=== PATIENT | female | born 1980 | race Caucasian/White ===

== ENCOUNTER 2020-10-19 17:00 | Outpatient (CLI) | payer BC, SELFPAY | END 2020-10-19 17:01 | disposition home or self-care (01) | LOC: ANHCOVIDVC 17:01 | PROVIDERS: PCP Family Medicine | DX: Z23 Encounter for immunization (principal) | CPT/HCPCS: 0001A; 91300 ==

== ENCOUNTER 2020-11-09 17:03 | Outpatient (CLI) | payer BC, SELFPAY | END 2020-11-09 17:04 | disposition home or self-care (01) | LOC: ANHCOVIDVC 17:03 | PROVIDERS: PCP Family Medicine | DX: Z23 Encounter for immunization (principal) | CPT/HCPCS: 0002A; 91300 ==

== ENCOUNTER 2023-10-20 01:05 | Day surgery (SDC) | payer BC, SELFPAY ==
[2023-10-13 10:08] VITALS: BMI 32.8
--- NOTE | 2023-10-18 09:02 | SUR.PREOP ---
Patient called regarding upcoming procedure. Reviewed preop instructions, appointment times, and procedure prep.
[2023-10-20 11:55] VITALS: BP 135/94; PULSE 84; RESP 16; TEMP 36; O2SAT 100; BMI 31.9
--- NOTE | 2023-10-20 12:13 | P.PNAN_ITS ---
Anes - Initial Pre Proc Eval Procedure: Operation Date: 10/20/23 13:00 Proposed Procedures p Colonoscopy - Steven Russo MD Date/Time: 10/20/23 12:13 Surgeon: Steven Russo MD Pre Op Diagnosis: fecal urgency,diarrhea,change in bowel habits Patient Data Age: 43 Gender: F Height: 1.6 m Weight: 84 kg Allergies Allergy/AdvReac Type Severity Reaction Status Date / Time phenylpropanolamine Allergy Severe RED SKIN/ Verified 10/20/23 12:04 FLUSHING clarithromycin Allergy Unknown Rash Verified 10/20/23 12:04 guaifenesin Allergy Unknown Rash Verified 10/20/23 12:04 phenylephrine Allergy Unknown Nausea Verified 10/20/23 12:04 Home Medications Medication Instructions Recorded Confirmed Type rifaximin 550 mg tablet (Xifaxan) 550 mg PO TID 14 days #42 tabs 10/03/23 10/20/23 Rx cetirizine 5 mg-pseudoephedrine ER 1 tablet PO Q12H PRN nasal 10/04/23 10/20/23 Rx 120 mg tablet,extended congestion #60 tabs release,12hr (Zyrtec-D) levothyroxine 88 mcg tablet 88 mcg PO DAILY 10/13/23 10/20/23 History norethindrone 1 mg-ethinyl 1 tablet PO DAILY 10/13/23 10/20/23 History estradiol 35 mcg tablet (Nortrel) Patient hx anesthesia problems: none Family hx anesthesia problems: none Results Review: All pre-operative results and documents have been reviewed as part of the pre- operative evaluation. [facility] Past Medical History Medical History (Updated 10/03/23 @ 10:14 by Jyotsna Parkinson, BUILDING [employer]STRUCTION PROFESSOR) BMI 31.0-31.9,adult BMI 32.0-32.9,adult Change in bowel habits Diarrhea Tenesmus (rectal) Family History Family History Sibling Hypertension Father Hypertension Mother Hypertension Kidney carcinoma Ovarian ca Jacqueline's disease Colitis Social History Social History Smoking status: Never smoker Alcohol intake: current Substance use: never Substance use type: does not use Living arrangements: with family Spiritual care concerns: No Anes - Eval Final PreProcedure Day of Procedure 10/20/23 12:13 Patient weight: normal Heart: regular rate and rhythm Lungs: clear to auscultation Airway: Mallampati scale class II Neurological: alert and oriented Last oral intake: >/= 8 hours ASA classification: II Emergent: no Anesthetic plan: proceed Anesthesia type and monitoring: general GIVS and standard monitoring Results Review: All pre-operative results and documents have been reviewed as part of the pre- operative evaluation. Informed Consent: The patient's anesthetic plan and its attendant risks and benefits were discussed with the patient/family/POA. Questions were solicited and answers provided to the satisfaction of the patient/family/POA.
[2023-10-20] MEDS: LACTATED RINGERS 1,000 ML 150 ML IV CONT (12:16)
--- NOTE | 2023-10-20 12:36 | WPDHPUPDATE1 ---
History and Physical Update Update Date/Time: 10/20/23 12:36 History and Physical has been reviewed, including an updated exam of the patient. There are NO changes in the patient's condition. Risks, benefits, and alternatives have been discussed and questions answered. Patient agrees to proceed with procedure.
[2023-10-20 12:58] VITALS: BP 116/78; PULSE 90; RESP 20; O2SAT 97
[2023-10-20 13:08] VITALS: BP 116/78; PULSE 85; RESP 16; O2SAT 100
[2023-10-20 13:18] VITALS: BP 147/80; PULSE 86; RESP 18; O2SAT 100
== END 2023-10-20 13:25 | disposition home or self-care (01) ==
PROVIDERS: PCP Family Medicine; Visit Provider Internal Medicine Gastroenterology
PROC: 0DJD8ZZ Inspection of Lower Intestinal Tract, Via Natural or Artificial Opening Endoscopic (ICD-10-PCS; CPT 45378; principal; 2023-10-20 13:00)
DX: R19.7 Diarrhea, unspecified (principal); R19.8 Other specified symptoms and signs involving the digestive system and abdomen; Z83.79 Family history of other diseases of the digestive system; E03.9 Hypothyroidism, unspecified
CPT/HCPCS: 45380; 88305; J2704; J7120